=== PATIENT | male | born 1975 | race African-American/Black ===

== ENCOUNTER 2017-05-14 19:25 | Emergency (ER) | payer OTHER ==
[2017-05-14] MEDS ORDERED: SODIUM CHLORIDE 1,000 ML IV ONE (19:28)
--- NOTE | 2017-05-14 19:28 | PDOC ---
History of Present Illness - General Chief Complaint: Asthma Stated Complaint: ASTHMA Time Seen by Provider: 05/14/17 19:27 History Source: Patient Exam Limitations: No Limitations - History of Present Illness Initial Comments: A portion of this note was documented by scribe services under my direction. I have reviewed the details of the note, within reason, and agree with the documentation. The case summary and management plan written by me. Medical decision making this is a 41-year-old male who comes in with respiratory difficulty wheezing and shortness of breath. Patient also was noted to have a fever in the emergency room. Patient did not get his flu shot this year. Patient has presumptive flu which probably triggered his acute exacerbation of his asthma. Patient has an inhaler that is relatively old and said he was using all day today without improvement of his symptoms. We'll give the patient DuoNeb's [id number] CBC, blood cultures and metabolic panel sent to the lab Influenza screen sent to lab Chest x-ray done Will reevaluate and reassess [id number] Patient still with wheezing however moving air better and feels better 05/14/17 20:27 Reevaluation lungs are now clear patient is comfortable patient is at the end of his fourth DuoNeb. Assessment and plan: This is a 41-year-old male who most likely has influenza which has triggered a asthma flare. Patient responded well to prednisone and DuoNeb's. Patient's wheezing has resolved and he feels much better. Patient given a dose of Tamiflu for presumptive influenza as it will take several hours for the test to come back Prescription was sent to patient's pharmacy to continue the Tamiflu however patient will call in the morning and only continue the Tamiflu if his test is positive. Patient also given another prescription for albuterol Past History - Past Medical History Allergies/Adverse Reactions: Allergies Allergy/AdvReac Type Severity Reaction Status Date / Time Cecil And Derivatives Allergy Verified 05/14/17 19:27 No Known Drug Allergies Allergy Verified 05/14/17 19:27 shellfish derived Allergy Verified 05/14/17 19:27 Home Medications: Ambulatory Orders Albuterol Sulfate Inhaler - [Ventolin HFA Inhaler -] 1 - 2 inh PO Q4H PRN Albuterol Sulfate Inhaler - [Ventolin Hfa Inhaler -] 1 - 2 inh PO Q4H #1 inhaler 05/14/17 Oseltamivir Phosphate [Tamiflu] 75 mg PO BID #10 capsule 05/14/17 Asthma: Yes - Suicide/Smoking/Psychosocial Hx Smoking History: Current some day smoker Have you smoked in the past 12 months: Yes Number of Cigarettes Smoked Daily: 0 'Breaking Loose' booklet given: 11/08/13 Substance Use Type: Marijuana ED Treatment Course - LABORATORY CBC & Chemistry Diagram: 05/14/17 19:40 05/14/17 19:40 *DC/Admit/Observation/Transfer Diagnosis at time of Disposition: Acute exacerbation of extrinsic asthma, Influenza-like illness - Discharge Dispostion Disposition: HOME Condition at time of disposition: Stable - Referrals - Patient Instructions Additional Instructions: Alternate acetaminophen with ibuprofen every 3-4 hours as needed for fever, body aches or headaches take prednisone 40 mg a day for the next 4 days this is for your asthma. Call the ER in the morning at [phone] and ask for the results of your influenza's test. If it is positive for influenza get the prescription filled that was sent to your pharmacy for the influenza medicine and take one tablet twice a day. If that test is negative your symptoms are due to a virus or the common cold and there is no need to take the influenza medicine. Rest at home and stay well-hydrated For your asthma use your inhaler 1-2 puffs every 4 hours as needed for shortness of breath. Return to the emergency department immediately with ANY new, persistent or worsening symptoms. Continue any medications as previously prescribed by your physician. You should follow up with your primary doctor as soon as possible regarding today's emergency department visit. . Please make sure your doctor reviews the results of your emergency evaluation. Thank you for coming to the Emergency Department today for your care. It was a pleasure to see you today. Please note that your evaluation is INCOMPLETE until you follow-up with your doctor. - Post Discharge Activity
[2017-05-14] MEDS ORDERED: methylPREDNISolone NA SUCC 125 MG/2 ML VIAL IVPUSH ONE (19:29)
[2017-05-14] MEDS: ALBUTEROL SO4 2.5/IPRATROPIUM 0.5 INH SOL 3 ML VIAL.NEB. NEB SCH ×4 (19:30→20:15)
[2017-05-14] MEDS ORDERED: methylPREDNISolone NA SUCC 125 MG/2 ML VIAL ONE (19:44)
[2017-05-14] MEDS ORDERED: ACETAMINOPHEN 1000 MG/100 ML VIAL (NON FORMULARY) IVPB ONE (19:45)
[2017-05-14] MEDS ORDERED: ACETAMINOPHEN INJECTION 100 ML IVPB ONE (19:48)
[2017-05-14 19:54] VITALS: BMI 33.5
[2017-05-14] MEDS ORDERED: ALBUTEROL SO4 2.5/IPRATROPIUM 0.5 INH SOL 3 ML VIAL.NEB. NEB ONE (19:57)
[2017-05-14 19:58] LABS: BASO % 1.5 % (0-2.0); EOS % 3.1 % (0-4.5); HEMOGLOBIN 15.6 GM/dl (11.7-16.9); LYMPH % 7.5 % (8-40); MCH 26.4 pg (25.7-33.7); MCHC 33.2 g/dl (32.0-35.9); MEAN CELL VOLUME 79.6 fl (80-96); MEAN PLT VOLUME 8.8 fl (7.5-11.1); MONO % 11.4 % (3.8-10.2); NEUT % 76.5 % (42.8-82.8); PLATELET COUNT 377 K/MM3 (134-434); RDW 13.5 % (11.9-15.9); WHITE BLOOD COUNT 12.2 K/mm3 (4.0-10.8)
[2017-05-14 20:08] LABS: ALBUMIN 3.8 g/dl (3.5-5.0); ALK PHOS 74 U/L (32-92); ANION GAP 9 (8-16); BILIRUBIN,TOTAL 0.4 mg/dl (0.2-1.0); BLOOD UREA NITROGEN 13 mg/dl (7-18); CALCIUM 9.2 mg/dl (8.4-10.2); CHLORIDE 99 mmol/L (98-107); CO2 24 mmol/L (22-28); CREATININE 1.1 mg/dl (0.6-1.3); GLUCOSE,RANDOM 136 mg/dl (74-106); SGOT/AST 35 U/L (10-42); SGPT/ALT 31 U/L (10-40); SODIUM 132 mmol/L (136-145)
[2017-05-14 20:17] VITALS: BP 110/71; PULSE 110; TEMP 100.6
[2017-05-14] MEDS ORDERED: OSELTAMIVIR PHOSPHATE 75 MG CAPSULE ONE (20:47)
[2017-05-14] MEDS ORDERED: OSELTAMIVIR PHOSPHATE 75 MG CAPSULE PO ONE (20:48)
--- NOTE | 2017-05-14 21:02 | PDOC ---
*Physical Exam - Vital Signs Last Vital Signs Temp Pulse Resp BP Pulse Ox 100.6 F H 110 H 20 110/71 94 L 05/14/17 20:16 05/14/17 20:16 05/14/17 20:16 05/14/17 20:16 05/14/17 20:16 <Acosta Irizarry I - Last Filed: 05/14/17 21:02> - Vital Signs Last Vital Signs Temp Pulse Resp BP Pulse Ox 100.6 F H 110 H 20 110/71 94 L 05/14/17 20:16 05/14/17 20:16 05/14/17 20:16 05/14/17 20:16 05/14/17 20:16 <Erum Traore - Last Filed: 05/14/17 21:03> ED Treatment Course - LABORATORY CBC & Chemistry Diagram: 05/14/17 19:40 05/14/17 19:40 - ADDITIONAL ORDERS Additional order review: Laboratory Results 05/14/17 19:40 Sodium 132 L Potassium 4.0 Chloride 99 Carbon Dioxide 24 Anion Gap 9 BUN 13 Creatinine 1.1 Creat Clearance w eGFR > 60 Random Glucose 136 H Calcium 9.2 Total Bilirubin 0.4 AST 35 ALT 31 Alkaline Phosphatase 74 Total Protein 7.0 Albumin 3.8 05/14/17 19:40 RBC 5.90 H MCV 79.6 L MCHC 33.2 RDW 13.5 MPV 8.8 Neutrophils % 76.5 Lymphocytes % 7.5 L Monocytes % 11.4 H Eosinophils % 3.1 Basophils % 1.5 - RADIOLOGY Radiology Studies Ordered: Category Date Time Status CHEST X-RAY PORTABLE* [RAD] Stat Radiology 05/14/17 19:30 Taken - Medications Given in the ED: ED Medications Discontinued Medications Generic Name Dose Route Start Last Admin Trade Name Freq PRN Reason Stop Dose Admin Acetaminophen 1,000 mg 05/14/17 19:45 05/14/17 19:55 Ofirmev Injection - IVPB 05/14/17 19:46 1,000 mg ONCE ONE Administration Albuterol/Ipratropium 1 amp 05/14/17 19:30 05/14/17 20:15 Duoneb - NEB 05/14/17 20:16 1 amp Q15M LALY Administration Sodium Chloride 1,000 mls @ 1,000 mls/hr 05/14/17 19:28 05/14/17 19:35 Normal Saline - IV 05/14/17 20:27 1,000 mls/hr .Q1H ONE Administration Methylprednisolone Sodium Succinate 125 mg 05/14/17 19:29 05/14/17 19:40 Solu-Medrol - IVPUSH 05/14/17 19:30 125 mg ONCE ONE Administration Oseltamivir Phosphate 75 mg 05/14/17 20:48 05/14/17 20:48 Tamiflu - PO 05/14/17 20:49 75 mg NOW ONE Administration <Acosta Irizarry I - Last Filed: 05/14/17 21:02> - LABORATORY CBC & Chemistry Diagram: 05/14/17 19:40 05/14/17 19:40 - ADDITIONAL ORDERS Additional order review: Laboratory Results 05/14/17 19:40 Sodium 132 L Potassium 4.0 Chloride 99 Carbon Dioxide 24 Anion Gap 9 BUN 13 Creatinine 1.1 Creat Clearance w eGFR > 60 Random Glucose 136 H Calcium 9.2 Total Bilirubin 0.4 AST 35 ALT 31 Alkaline Phosphatase 74 Total Protein 7.0 Albumin 3.8 05/14/17 19:40 RBC 5.90 H MCV 79.6 L MCHC 33.2 RDW 13.5 MPV 8.8 Neutrophils % 76.5 Lymphocytes % 7.5 L Monocytes % 11.4 H Eosinophils % 3.1 Basophils % 1.5 - Medications Given in the ED: ED Medications Discontinued Medications Generic Name Dose Route Start Last Admin Trade Name Freq PRN Reason Stop Dose Admin Acetaminophen 1,000 mg 05/14/17 19:45 05/14/17 19:55 Ofirmev Injection - IVPB 05/14/17 19:46 1,000 mg ONCE ONE Administration Albuterol/Ipratropium 1 amp 05/14/17 19:30 05/14/17 20:15 Duoneb - NEB 05/14/17 20:16 1 amp Q15M LALY Administration Sodium Chloride 1,000 mls @ 1,000 mls/hr 05/14/17 19:28 05/14/17 19:35 Normal Saline - IV 05/14/17 20:27 1,000 mls/hr .Q1H ONE Administration Methylprednisolone Sodium Succinate 125 mg 05/14/17 19:29 05/14/17 19:40 Solu-Medrol - IVPUSH 05/14/17 19:30 125 mg ONCE ONE Administration Oseltamivir Phosphate 75 mg 05/14/17 20:48 05/14/17 20:48 Tamiflu - PO 05/14/17 20:49 75 mg NOW ONE Administration <Erum Traore - Last Filed: 05/14/17 21:03> Progress Note - Progress Note Progress Note: The purpose of this chart is to complete the documentation of the scribe. The chart was accidentally signed prior to the scribe adding her documentation to the chart <Acosta Irizarry I - Last Filed: 05/14/17 21:02> - Progress Note Progress Note: 41 y.o male with significant past medical history of asthma (prior distant hospitalization in the past, no intubations), who presents to the emergency room complaining of 2 days of fever, nonproductive cough and 1 day of shortness of breath and wheezing. The patient states that he took his albuterol inhaler multiple times today without relief. He also took cough syrup today that did not provide any relief. The patient denies chest pain. Denies nausea, vomiting, diarrhea. PAST MEDICAL HISTORY: Asthma PAST SURGICAL HISTORY: no significant history FAMILY HISTORY: no pertinent history SOCIAL HISTORY: Pt lives with family and is employed. MEDICATIONS: reviewed ALLERGIES: As per nursing notes Review of systems General: No fevers or chills, no weakness, no weight loss HEENT: No change in vision. No sore throat, No ear pain Cardiovascular: No chest pain. Respiratory:+shortness of breath, +wheezing, +nonproductive cough. Gastrointestinal: No nausea, vomiting, diarrhea or constipation, No rectal bleeding Genitourinary: No dysuria, hematuria, or frequency Musculoskeletal: No joint or muscle pain or swelling Neurologic: No headache, vertigo, dizziness or loss of consciousness Psychiatric: No depression Skin: No rashes or easy bruising Endocrine: No increased thirst or abnormal weight change Allergic: No skin or latex allergy All other systems reviewed and normal Physical Exam GENERAL: The patient is awake, alert, and fully oriented, in no acute distress. HEAD: Normal with no signs of trauma. EYES: Pupils equal, round and reactive to light, extraocular movements intact, sclera anicteric, conjunctiva clear. CARDIAC: S1-S2 normal, +tachycardic and rhythm, no murmurs rubs or gallops RESPIRATORY: Mild tachypnea.Good air entry bilaterally. Diffuse expiratory wheezes bilaterally. No use of accessory muscles EXTREMITIES: Normal range of motion, no edema. NEUROLOGICAL: Normal speech, normal gait. PSYCH: Normal mood, normal affect. SKIN: Warm, Dry, normal turgor, no rashes or lesions noted. <Erum Traore - Last Filed: 05/14/17 21:03> *DC/Admit/Observation/Transfer <Acosta Irizarry I - Last Filed: 05/14/17 21:02> - Attestations Scribe Attestion: 05/14/17 21:03 Documentation prepared by MAICOL Garcia, acting as medical payment poster for Acosta Irizarry MD. <Erum Traore - Last Filed: 05/14/17 21:03> Diagnosis at time of Disposition: Acute exacerbation of extrinsic asthma, Influenza-like illness - Discharge Dispostion Disposition: HOME Condition at time of disposition: Stable - Prescriptions Prescriptions: Albuterol Sulfate Inhaler - [Ventolin Hfa Inhaler -] 1 - 2 inh PO Q4H #1 inhaler Oseltamivir Phosphate [Tamiflu] 75 mg PO BID #10 capsule - Patient Instructions Additional Instructions: Alternate acetaminophen with ibuprofen every 3-4 hours as needed for fever, body aches or headaches take prednisone 40 mg a day for the next 4 days this is for your asthma. Call the ER in the morning at [phone] and ask for the results of your influenza's test. If it is positive for influenza get the prescription filled that was sent to your pharmacy for the influenza medicine and take one tablet twice a day. If that test is negative your symptoms are due to a virus or the common cold and there is no need to take the influenza medicine. Rest at home and stay well-hydrated For your asthma use your inhaler 1-2 puffs every 4 hours as needed for shortness of breath. Return to the emergency department immediately with ANY new, persistent or worsening symptoms. Continue any medications as previously prescribed by your physician. You should follow up with your primary doctor as soon as possible regarding today's emergency department visit. . Please make sure your doctor reviews the results of your emergency evaluation. Thank you for coming to the Emergency Department today for your care. It was a pleasure to see you today. Please note that your evaluation is INCOMPLETE until you follow-up with your doctor.
== END 2017-05-14 20:48 | disposition home or self-care (01) ==
LOC: FER 19:25
PROC: 3E0F7GC Introduction of Other Therapeutic Substance into Respiratory Tract, Via Natural or Artificial Opening (ICD-10-PCS; principal; 2017-05-14)
PROC: 3E033NZ Introduction of Analgesics, Hypnotics, Sedatives into Peripheral Vein, Percutaneous Approach (ICD-10-PCS; 2017-05-14)
PROC: 3E033GC Introduction of Other Therapeutic Substance into Peripheral Vein, Percutaneous Approach (ICD-10-PCS; 2017-05-14)
DX: J45.41 Moderate persistent asthma with (acute) exacerbation (principal); J00 Acute nasopharyngitis [common cold]; F17.210 Nicotine dependence, cigarettes, uncomplicated
CPT/HCPCS: 36415; 71045-TC; 80053; 85025; 87040; 87804; 94640; 96361; 96374; 96375; 99282-25

== ENCOUNTER 2018-05-05 00:25 | Emergency (ER) | payer OTHER ==
[2018-05-05 00:36] VITALS: BP 146/97; PULSE 86; TEMP 98.3; BMI 33.2
[2018-05-05] MEDS ORDERED: predniSONE 20 MG TABLET (UD) PO ONE (00:54)
--- NOTE | 2018-05-05 00:56 | PDOC ---
History of Present Illness - General Chief Complaint: Itching Stated Complaint: PRURITIS Time Seen by Provider: 05/05/18 00:52 History Source: Patient Exam Limitations: No Limitations - History of Present Illness Initial Comments: 05/05/18 00:56 This is a 42-year-old male who has history of eczema. Patient said that he has having itching as a result of his eczema. Patient took some steroid cream without any relief and comes in for evaluation. Patient denies any other complaints. 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 Patient denies any fevers or chills, Allergies: None Past Medical History: none Social history: Lives with family. No smoking. No alcohol. No illicit drugs. Surgical history: None General: No fevers or chills, no weakness, no weight loss HEENT: No change in vision. No sore throat,. No ear pain CardioVascular: no chest discomfort. No shortness of breath Respiratory:No cough, or wheezing. Gastrointestinal: no nausea, vomiting, diarrhea or constipation, No rectal bleeding Genitourinary: No dysuria, hematuria, or frequency Musculoskeletal: No joint or muscle pain or swelling Neurologic: No headache, vertigo, dizziness or loss of consciousness Psychiatric: nor depression Skin: No rashes or easy bruising, + itching Endocrine: no increased thirst or abnormal weight change Allergic: no skin or latex allergy All other systems reviewed and normal GENERAL: The patient is awake, alert, and fully oriented, in no acute distress. HEAD: Normal with no signs of trauma. EYES: Pupils equal, round and reactive to light, extraocular movements intact, sclera anicteric, conjunctiva clear. EXTREMITIES:atraumatic, Normal range of motion, no edema. NEUROLOGICAL: Normal speech, normal gait. PSYCH: Normal mood, normal affect. SKIN: Warm, Dry, normal turgor, + eczema with some evidence of scratching no infection Assessment plan: This 42 comes in complaining of itching secondary to his eczema. Patient given prednisone and a short steroid taper. Patient will follow- up with his doctor next week. Patient discharged. Past History - Past Medical History Allergies/Adverse Reactions: Allergies Allergy/AdvReac Type Severity Reaction Status Date / Time [place] And Derivatives Allergy Verified 05/14/17 19:27 No Known Drug Allergies Allergy Verified 05/14/17 19:27 shellfish derived Allergy Verified 05/14/17 19:27 Home Medications: Ambulatory Orders Albuterol Sulfate Inhaler - [Ventolin HFA Inhaler -] 1 - 2 inh PO Q4H PRN Methylprednisolone [Medrol Dose Ricky] 4 mg PO ASDIR #21 tablet 05/05/18 Simvastatin 05/05/18 Triamcinolone 0.1% Cream [Aristocort] 0 gm TP BID 05/05/18 Asthma: Yes COPD: No Hypercholesterolemia: Yes Other medical history: ECZEMA - Suicide/Smoking/Psychosocial Hx Smoking History: Never smoked Have you smoked in the past 12 months: Yes Number of Cigarettes Smoked Daily: 0 'Breaking Loose' booklet given: 05/14/17 Hx Alcohol Use: No Drug/Substance Use Hx: No Substance Use Type: Marijuana *Physical Exam - Vital Signs Last Vital Signs Temp Pulse Resp BP Pulse Ox 98.3 F 86 16 146/97 98 05/05/18 00:33 05/05/18 00:33 05/05/18 00:33 05/05/18 00:33 05/05/18 00:33 Moderate Sedation - Procedure Monitoring Vital Signs: Procedure Monitoring Vital Signs Temperature 98.3 F 05/05/18 00:33 Pulse Rate 86 05/05/18 00:33 Respiratory Rate 16 05/05/18 00:33 Blood Pressure 146/97 05/05/18 00:33 O2 Sat by Pulse Oximetry (%) 98 05/05/18 00:33 *DC/Admit/Observation/Transfer Diagnosis at time of Disposition: Pruritus - Discharge Dispostion Disposition: HOME Condition at time of disposition: Stable - Prescriptions Prescriptions: Methylprednisolone [Medrol Dose Ricky] 4 mg PO ASDIR #21 tablet - Referrals - Patient Instructions Additional Instructions: Get the prescription filled for the Medrol Dosepak and take the steroid as directed by the Dosepak. Return to the emergency department immediately with ANY new, persistent or worsening symptoms. Continue any medications as previously prescribed by your physician. You should follow up with your primary doctor as soon as possible regarding today's emergency department visit. . Please make sure your doctor reviews the results of your emergency evaluation. Thank you for coming to the Emergency Department today for your care. It was a pleasure to see you today. Please note that your evaluation is INCOMPLETE until you follow-up with your doctor. - Post Discharge Activity
[2018-05-05] MEDS ORDERED: predniSONE 20 MG TABLET (UD) ONE (01:02)
== END 2018-05-05 01:08 | disposition home or self-care (01) ==
LOC: FER 00:25
DX: L29.9 Pruritus, unspecified (principal)
CPT/HCPCS: 99281-25

== ENCOUNTER 2019-01-26 13:00 | Emergency (ER) | payer OTHER ==
--- NOTE | 2019-01-26 13:10 | PDOC ---
History of Present Illness - General Chief Complaint: Itching Stated Complaint: ITCHING Time Seen by Provider: 01/26/19 13:10 - History of Present Illness Initial Comments: 01/26/19 13:45 43 y/o M hx of eczema presents to the ER with 2months of itching and rash. In the last week, the pruritus has become more severe. He has has been using triamcinolone and moisturizers (aquaphor) with no relief. He states the episode closely resembles past eczema flare ups. He denies any fevers, chill, sick contacts, nausea, vomiting, diarrhea, wheezing or shortness of breath. Past History - Past Medical History Allergies/Adverse Reactions: Allergies Allergy/AdvReac Type Severity Reaction Status Date / Time Harmon And Derivatives Allergy Verified 01/26/19 13:11 No Known Drug Allergies Allergy Verified 01/26/19 13:11 shellfish derived Allergy Verified 01/26/19 13:11 Home Medications: Ambulatory Orders Diphenhydramine [Benadryl -] 50 mg PO DAILY 7 Days #7 capsule 01/26/19 Meloxicam [Mobic] 15 mg PO DAILY PRN 01/26/19 Prednisone [Deltasone] 40 mg PO ONCE 3 Days #3 tablet 01/26/19 Asthma: Yes COPD: No Hypercholesterolemia: Yes - Psycho Social/Smoking Cessation Hx Smoking History: Never smoked Have you smoked in the past 12 months: Yes Number of Cigarettes Smoked Daily: 0 'Breaking Loose' booklet given: 05/14/17 Hx Alcohol Use: No Drug/Substance Use Hx: No Substance Use Type: Marijuana Review of Systems - Review of Systems Constitutional: No: Chills, Fever HEENTM: No: Eye Pain, Blurred Vision Respiratory: No: Cough, Shortness of Breath Cardiac (ROS): No: Chest Pain, Lightheadedness ABD/GI: No: Nausea, Vomiting : No: Burning, Dysuria Musculoskeletal: No: Back Pain Integumentary: Yes: Symptoms Reported *Physical Exam - Physical Exam Comments: 01/26/19 14:10 PE: GENERAL: Awake, alert, and fully oriented, in no acute distress HEAD: No signs of trauma, normocephalic, atraumatic EYES: PERRLA, EOMI, sclera anicteric, conjunctiva clear ENT: Auricles normal inspection, hearing grossly normal, nares patent, oropharynx clear without exudates. Moist mucosa NECK: Normal ROM, supple, no lymphadenopathy, JVD, or masses LUNGS: No distress, speaks full sentences, clear to auscultation bilaterally HEART: Regular rate and rhythm, normal S1 and S2, no murmurs, rubs or gallops, peripheral pulses normal and equal bilaterally. ABDOMEN: Soft, nontender, normoactive bowel sounds. No guarding, no rebound. No masses EXTREMITIES : Normal inspection, Normal range of motion, no edema. No clubbing or cyanosis NEUROLOGICAL: Cranial nerves II through XII grossly intact. Normal speech, normal gait, no focal sensorimotor deficits SKIN: Large areas of hyperpigmentation and scaling on trunk, neck and thighs down to the knee, excoriation, flaking and scaling in those areas as well no yellow crusting, red streaks or erythema observed. Medical Decision Making - Medical Decision Making 01/26/19 13:48 43 y/o M hx of eczema presents to the ER with 2months of itching and rash. Pt has appointment with new PCP on Sunday to establish care. Has never seen a director of instructional technology for his condition Has not used any benadry Meds: Benadryl 50mg Po for relief Amb medications: 3 day course of prednisone (40mg po daily) and benadry prescription sent to his pharmacy. 01/26/19 14:03 Reassesment Pt. reports reduced itching. feeling a little better. 01/26/19 14:15 Pt. feels comfortable enough to go home. Discharge - Discharge Information Problems reviewed: Yes Clinical Impression/Diagnosis: Pruritus Condition: Good Disposition: HOME - Admission No - Follow up/Referral Referrals: Preeti Villarreal [Staff Physician] - Caitlyn Galloway MD [Non Staff, Medical] - Izabella Downs MD [Staff Physician] - John Underwood [Staff Physician] - - Patient Discharge Instructions Patient Printed Discharge Instructions: Eczema Additional Instructions: You were seen in the emergency room for itching and widespread rash. return to the ER if you develop fever, crusting of you skin, chills or other signs of infection take your prescribed medications as directed keep your appointment with your primary care provider and we have included referrals for a director of instructional technology. - Post Discharge Activity
[2019-01-26 13:24] VITALS: BP 133/92; PULSE 95; TEMP 98.1; BMI 32.1
[2019-01-26] MEDS ORDERED: diphenhydrAMINE HCL 50 MG CAPSULE PO ONE (13:39)
[2019-01-26] MEDS ORDERED: diphenhydrAMINE HCL 50 MG CAPSULE ONE (13:41)
--- NOTE | 2019-01-26 13:42 | PDOC ---
Attending Attestation - Resident Resident Name: Rigo Valdez - ED Attending Attestation I have performed the following: I have examined & evaluated the patient, The case was reviewed & discussed with the resident, I agree w/resident's findings & plan, Exceptions are as noted - HPI HPI: 01/26/19 13:38 43 M with h/o asthma, eczema presenting with rash. Pt states that his eczema has been flaring up the past week. He believes it is triggered by his allergies. Pt notes that he is itchy all over, particularly his back. It keeps him up at night when he tries to sleep. Denies F/C. Denies any other symptoms. Pt is using topical triamcinolone and moisturizers. Has taken oral steroids in the past, which have worked well for him. - Physicial Exam PE: 01/26/19 13:40 "GENERAL: Awake, alert, and fully oriented, in no acute distress. HEAD: No signs of trauma EYES: PERRLA, EOMI, sclera anicteric, conjunctiva clear ENT: Auricles normal inspection, hearing grossly normal, nares patent, oropharynx clear without exudates. Moist mucosa NECK: Nontender, no stepoffs, Normal ROM, supple, no lymphadenopathy, JVD, or masses LUNGS: Breath sounds equal, clear to auscultation bilaterally. No wheezes, and no crackles HEART: Regular rate and rhythm, normal S1 and S2, no murmurs, rubs or gallops ABDOMEN: Soft, nontender, normoactive bowel sounds. No guarding, no rebound. No masses EXTREMITIES: Normal range of motion, no edema. No clubbing or cyanosis. No cords, erythema, or tenderness NEUROLOGICAL: Cranial nerves II through XII intact. 5/5 strength and sensation in all extremities, Normal speech, normal gait, normal cerebellar function SKIN: + diffuse macular rash with scaling, no pustules or vesicles, no ulcers, no plaques - Medical Decision Making 01/26/19 13:41 43 M with eczema flare. No systemic symptoms or signs of other serious illness. - Recommended to pt that he try benadryl at night for itching - Will send short course of prednisone to pt's pharmacy, pt instructed not to take it unless benadryl is ineffective - Derm referral provided Pt is well appearing, with normal vitals. Clinically stable for DC at this time. I discussed the physical exam findings, ancillary test results and final diagnoses with the patient. I answered all of the patient's questions. The patient was satisfied with the care received and felt comfortable with the discharge plan and treatment plan. The patient agrees to follow up with the primary care physician within 24-72 hours.
== END 2019-01-26 14:21 | disposition home or self-care (01) ==
LOC: FER 13:00
DX: L29.9 Pruritus, unspecified (principal); Z91.018 Allergy to other foods; Z91.013 Allergy to seafood; Z87.891 Personal history of nicotine dependence; J45.909 Unspecified asthma, uncomplicated; E78.00 Pure hypercholesterolemia, unspecified
CPT/HCPCS: 99281-25